=== PATIENT | male | born 1975 | race Caucasian/White ===

== ENCOUNTER → 2021-03-08 | Outpatient (CLI) | payer OTHER ==
--- NOTE | 2021-03-08 11:14 | XR ---
EXAMINATION TYPE: XR knee complete LT DATE OF EXAM: 03/08/2021 COMPARISON: None HISTORY: Fall, pain TECHNIQUE: 3 view left knee FINDINGS: Joint spaces preserved. No acute fracture or dislocation is evident. No joint effusion is e vident. Soft tissues appear normal. Follow up exams can be performed 7-10 days from acute trauma for continued pain. IMPRESSION: 1. Normal three-view left knee
== END | disposition home or self-care (01) ==
LOC: RADXRMAIN 10:21
PROVIDERS: ATTEND Emergency Medicine
DX: M25.562 Pain in left knee (principal)

== ENCOUNTER → 2021-03-16 | Outpatient (CLI) | payer OTHER ==
--- NOTE | 2021-03-16 09:24 | XR ---
EXAMINATION TYPE: XR knee complete LT DATE OF EXAM: 03/16/2021 COMPARISON: 03/08/2021 HISTORY: 45-year-old male [id number] TECHNIQUE: 3 views FINDINGS: The menisci and medial sided soft tissue swelling. Small knee joint effusion. Anterior soft tissue sw elling. IMPRESSION: There seems to be some medial and anterior soft tissue swelling. Small knee joint effusion. No acute osseous abnormality seen. If symptoms persist, consider MRI.
== END | disposition home or self-care (01) ==
LOC: RADXRMAIN 09:02
PROVIDERS: ATTEND Emergency Medicine
DX: M25.462 Effusion, left knee (principal)

== ENCOUNTER → 2021-03-21 | Outpatient (CLI) | payer OTHER ==
--- NOTE | 2021-03-21 17:27 | MR ---
EXAMINATION TYPE: MR knee LT wo con DATE OF EXAM: 03/21/2021 COMPARISON: Plain film 03/16/2021 HISTORY: Left knee injury while working. TECHNIQUE: Multiplanar, multisequence imaging of the left knee is performed without IV contrast. FINDINGS: MEDIAL MENISCUS: Anterior and posterior horns are intact without tear. LATERAL MENISCUS: Anterior and posterior horns are intact without tear. CRUCIATE LIGAMENTS: The anterior and posterior cruciate ligaments are intact and unremarkable. COLLATERAL LIGAMENTS: The medial collateral ligament and lateral collateral ligament complex are inta ct and unremarkable. EXTENSOR MECHANISM: Visualized quadriceps and patellar tendons are intact. EFFUSION: No significant suprapatellar joint effusion. 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 OTHER: There is subcutaneous edema present anteriorly. Mixed signal is present within the subcutaneo us edema, there could be some associated hemorrhage medially, multilocular fluid collection, T2 brigh t, T1 intermediate signal is noted at the medial aspect of the joint extending to the level of the in tercondylar notch anteriorly but primarily along the medial femoral condyle, overall measuring approx imately 3.6 x 1.8 x 2.5 cm, similar multilocular, multiseptated focus is present adjacent to the orig in of the lateral belly of the gastrocnemius measuring approximately 2.4 cm in cephalad to caudal dim ension by 1.5 cm in anterior posterior dimension by 2.1 cm. IMPRESSION: Osteoarthritis. Probable ganglion cysts about the knee with subcutaneous edema or possibly ecchymosis . Chondromalacia patella. Additional findings above.
== END | disposition home or self-care (01) ==
LOC: RADMRIMAIN 11:14
PROVIDERS: ATTEND Emergency Medicine
DX: S80.02XD Contusion of left knee, subsequent encounter (principal); M17.12 Unilateral primary osteoarthritis, left knee; X58.XXXD Exposure to other specified factors, subsequent encounter